=== PATIENT | female | born 1965 | race Caucasian/White ===

== ENCOUNTER 2019-02-09 07:01 | Emergency (ER) | payer OTHER ==
[~2019-02-09] VITALS: Wt 80.0 kg
[2019-02-09 07:14] VITALS: BP 169/81; PULSE 95; RESP 18
[2019-02-09] MEDS ORDERED: MED4DP PO (07:32)
[2019-02-09] MEDS ORDERED: BENZ-6 PO (07:32)
[2019-02-09] MEDS ORDERED: PROM6.2515 PO (07:32)
[2019-02-09] MEDS ORDERED: ALBU8.5H8 INH (07:32)
--- NOTE | 2019-02-09 07:57 | ERD ---
ER Documentation Chief Complaint Chief Complaint COUGH X 3 DAYS HPI 53-year-old female presenting with cough times 3 days. Patient describes it as dry and worsening. No fevers. Patient also has a sore throat with ear pain. Has a mild headache. Took Robitussin but no other medications. Medical history is lupus. NKDA. Surgical history and breast augmentation. Social history denies ROS All systems reviewed and are negative except as per history of present illness. Medications Home Meds Active Scripts Benzonatate* (Tessalon Perle*) 100 Mg Capsule, 100 MG PO Q8H PRN for COUGH, #30 CAP Prov:MARLENI DIOP PA-C 02/09/19 Promethazine Hcl* (Promethazine Hcl* Syrup) 6.25 Mg/5 Ml Syrup, 6.25 MG PO Q6H PRN for COUGH, #100 ML Prov:MARLENI DIOP PA-C 02/09/19 Albuterol Sulfate* (Proair HFA*) 8.5 Gm Hfa.aer.ad, 2 PUFF INH Q4, #1 INHALER Prov:MARLENI DIOP PA-C 02/09/19 Methylprednisolone* (Medrol* DOSE PACK) 4 Mg/Dose-Pack Tab.ds.pk, 4 MG PO . DIRECTED, #1 PACKET Prov:MARLENI DIOP PA-C 02/09/19 Allergies Allergies: Coded Allergies: No Known Allergy (Unverified , 03/02/14) PMhx/Soc Medical and Surgical Hx: pt denies Medical Hx, pt denies Surgical Hx Hx Alcohol Use: No Hx Substance Use: No Hx Tobacco Use: No Smoking Status: Never smoker FmHx Family History: No diabetes, No coronary disease, No other Physical Exam Vitals Vital Signs Date Temp Pulse Resp B/P (MAP) Pulse Ox O2 O2 Flow FiO2 Time Delivery Rate 02/09/19 97.8 95 18 169/81 99 07:14 (110) Physical Exam GENERAL: The patient is well-appearing, well-nourished, in no acute distress HEENT: Atraumatic. Conjunctivae are pink. Pupils equal, round, and reactive to light. There is no scleral icterus. Tympanic membranes clear bilaterally. Oropharynx clear. NECK: C-spine is soft and supple. There is no meningismus. There is no cervical lymphadenopathy. CHEST: Clear to auscultation bilaterally. There are no rales, wheezes or rhonchi. HEART: Regular rate and rhythm. No murmurs, clicks, rubs or gallops. Procedures/MDM MDM: 53-year-old female presenting with cough. Oxygen saturation is 99% on room air. I have low suspicion for pneumonia as patient's breath sounds are within normal limits no with no focal exam. Patient is afebrile. I have low suspicion for PE. Patient does not have pleuritic chest pain and is not tachycardic. I have low suspicion for respiratory distress or hypoxia. Patient's exam is non- concerning. Patient likely has viral cough and is discharged with supportive medications. Patient is told if symptoms change or worsen to return immediately to the ER. All questions answered at discharge Departure Diagnosis: Primary Impression: Cough Condition: Stable Patient Instructions: Cough, Chronic, Uncertain Cause, (Adult) Referrals: CRUZ MORIN MD (PCP) Additional Instructions: FOLLOW UP WITH YOUR PRIMARY CARE PHYSICIAN TOMORROW.Return to this facility if you are not improving as expected. MARLENI DIOP PA-C Feb 09, 2019 07:57
== END 2019-02-09 08:09 | disposition home or self-care (01) ==
LOC: FTE 07:01
DX: R05 Cough (principal)
CPT/HCPCS: 99283